=== PATIENT | female | born 1990 | race Hispanic/Latino ===

== ENCOUNTER 2021-06-07 08:10 | Outpatient (CLI) ==
[2021-06-07 21:05] LABS: SARS-CoV-2 PCR by NAA Not Detected (NotDetected)
== END 2021-06-07 08:11 | disposition home or self-care (01) ==
LOC: CSHLAB 08:10
PROVIDERS: ATTEND Obstetrics & Gynecology
DX: Z20.822 Contact with and (suspected) exposure to COVID-19 (principal)
CPT/HCPCS: U0003; U0005

== ENCOUNTER 2021-06-09 16:13 | Outpatient (CLI) | payer MEDICAID ==
[2021-06-09 17:21] LABS: Hemoglobin 11.2 g/dL (12.0-15.5); Mean Corpuscular HGB CONC 33.8 g/dL (32.0-36.0); Mean Corpuscular Volume 82.8 fl (81.6-98.3); Mean Platelet Volume 10.5 fl (7.4-10.4); Platelet Count 363 10x3/uL (150-450); RBC Distribution Width 13.4 % (11.5-14.5); White Blood Cell (WBC) Count 5.2 10x3/uL (3.5-10.5)
[2021-06-09 17:56] LABS: Hep B Surf Ag Non-Reactive S/CO (NonReactive)
[2021-06-09 18:07] LABS: HBSAg Index 0.22 S/CO (0-0.99)
[2021-06-10 13:25] LABS: Syphilis Antibody Nonreactive (Nonreactive); Syphilis Antibody Index 0.05 S/CO (<1.00 Non-Reactive)
== END 2021-06-09 16:14 | disposition home or self-care (01) ==
LOC: CSHLAB 16:13
PROVIDERS: ATTEND Obstetrics & Gynecology
DX: Z01.812 Encounter for preprocedural laboratory examination (principal)
CPT/HCPCS: 85027; 86780; 86900; 86901; 87340

== ENCOUNTER 2021-06-11 10:03 | Inpatient (IN) | payer MEDICAID, SELFPAY ==
[2021-06-11 11:18] VITALS: BMI 31.9
[2021-06-11] MEDS ORDERED: Famotidine/PF 20 mg/2ml Vial SLOW IVP PRN (11:20)
[2021-06-11] MEDS ORDERED: Bicitra 30 ML UDCUP PO PRN (11:20)
[2021-06-11] MEDS ORDERED: hydrALAZINE 20 MG/ML VIAL SLOW IVP PRN ×2 (11:21→15:21)
[2021-06-11] MEDS ORDERED: Promethazine HCl 25 MG/ML VIAL IM PRN ×3 (11:21→15:21)
[2021-06-11] MEDS ORDERED: Acetaminophen 500 MG TAB PO PRN (11:21)
[2021-06-11] MEDS ORDERED: Ondansetron PF 4 MG/2 ML Vial IVP PRN ×3 (11:21→15:21)
[2021-06-11] MEDS ORDERED: ceFAZolin 2 GM/Dextrose 50 ML 2 GM in Premix Bag 1 BAG IVPB SCH (11:30)
[2021-06-11] MEDS ORDERED: Hydrocerin (Eucerin) Cream 120 gm Jar TOP PRN (11:57)
[2021-06-11] MEDS ORDERED: Promethazine HCl 25 MG SUPP PR PRN (11:57)
[2021-06-11] MEDS ORDERED: diphenhydrAMINE 50 MG/ML VIAL IVP PRN (11:57)
[2021-06-11] MEDS ORDERED: Naloxone HCl 0.4 mg/ml Vial IV PRN (11:57)
[2021-06-11] MEDS ORDERED: Fentanyl 100 MCG/2 ML VIAL SLOW IVP PRN (11:57)
[2021-06-11] MEDS ORDERED: Meperidine HCl/PF 25 MG/ML VIAL SLOW IVP PRN (11:57)
[2021-06-11] MEDS ORDERED: Naloxone HCl 0.4 mg/ml Vial IVP PRN ×2 (11:57)
[2021-06-11] MEDS ORDERED: L&D-Morphine 4 MG/ML VIAL SLOW IVP PRN (11:57)
[2021-06-11] MEDS ORDERED: Ondansetron HCl/PF 4 MG/2 ML Vial IVP PRN (11:57)
[2021-06-11] MEDS ORDERED: Communication Order-Pharmacy FS SCH (12:00)
[2021-06-11] MEDS ORDERED: Ketorolac Tromethamine 30 MG/ML VIAL IVP SCH (12:00)
[2021-06-11] MEDS ORDERED: Morphine PF 10 MG/10 ML VIAL ONE (12:08)
[2021-06-11] MEDS ORDERED: Ondansetron PF 4 MG/2 ML Vial ONE (12:08)
[2021-06-11] MEDS ORDERED: Dexamethasone 4 mg/ml Vial ONE (12:08)
[2021-06-11] MEDS ORDERED: Phenylephrine 40 MG/NS 250 ML 250 ML ONE (12:09)
[2021-06-11 13:07] LABS: pH (Cord, venous) 7.321 (7.250-7.350)
[2021-06-11] MEDS ORDERED: Misoprostol 200 MCG TAB PR PRN (15:21)
[2021-06-11] MEDS ORDERED: Methylergonovine 0.2 MG/ML VIAL IM PRN (15:21)
[2021-06-11] MEDS ORDERED: Boostrix 0.5 ML (Tdap) VIAL IM ONE (15:21)
[2021-06-11] MEDS ORDERED: diphenhydrAMINE 25 MG CAP PO PRN (15:21)
[2021-06-11] MEDS ORDERED: NS w/ Oxytocin 30 units 500 ML IV SCH (15:21)
[2021-06-11] MEDS: Ketorolac Tromethamine 30 MG/ML VIAL IVP PRN (19:52)
[2021-06-12] MEDS ORDERED: HYDROcodone/Acetaminophen 5/325 mg Tablet PO PRN (00:01)
[2021-06-12] MEDS: Simethicone Chewable 80 MG TAB PO PRN ×3 (00:03→21:00)
[2021-06-12 04:40] LABS: Glucose 105 mg/dL (70-105)
[2021-06-12 05:06] LABS: Hemoglobin 9.4 g/dL (12.0-15.5); Mean Corpuscular HGB CONC 32.6 g/dL (32.0-36.0); Mean Corpuscular Volume 85.7 fl (81.6-98.3); Mean Platelet Volume 10.6 fl (7.4-10.4); Platelet Count 288 10x3/uL (150-450); RBC Distribution Width 13.5 % (11.5-14.5); Red Blood Cell (RBC) Count 3.36 10x6/uL (3.90-5.03); White Blood Cell (WBC) Count 11.3 10x3/uL (3.5-10.5)
[2021-06-12] MEDS: Lactated Ringer's 1,000 ML IV SCH ×3 (05:45→15:53)
[2021-06-12] MEDS: Docusate 100 MG CAP PO SCH ×3 (05:46→20:51)
[2021-06-12] MEDS: Ferrous Sulfate 325 MG TAB PO SCH ×3 (05:47→20:51)
[2021-06-12] MEDS: Ketorolac Tromethamine 30 MG/ML VIAL IVP PRN (07:39)
[2021-06-12] MEDS: Prenatal Vitamin 1 TAB PO SCH (07:44)
[2021-06-12] MEDS: HYDROcodone/Acetaminophen 5/325 mg Tablet PO PRN ×3 (07:44→20:51)
[2021-06-12] MEDS: Ibuprofen 800 MG TAB PO SCH ×2 (13:57→22:27)
[2021-06-13] MEDS ORDERED: Acetaminophen 325 MG TAB PO PRN (00:20)
[2021-06-13] MEDS: Ibuprofen 800 MG TAB PO SCH (05:32)
[2021-06-13] MEDS: Simethicone Chewable 80 MG TAB PO PRN (05:35)
[2021-06-13 08:11] VITALS: BP 94/50; TEMP 97.9
[2021-06-13] MEDS: Docusate 100 MG CAP PO SCH (08:29)
[2021-06-13] MEDS: Prenatal Vitamin 1 TAB PO SCH (08:29)
[2021-06-13] MEDS: Ferrous Sulfate 325 MG TAB PO SCH (08:30)
== END 2021-06-13 13:40 | disposition home or self-care (01) | DRG 788 ==
LOC: CSHLD 10:03 → CSHPED 15:55
PROVIDERS: ADMIT Obstetrics & Gynecology; ATTEND Obstetrics & Gynecology
PROC: 10D00Z1 Extraction of Products of Conception, Low, Open Approach (ICD-10-PCS; principal; 2021-06-11)
DX: O34.211 Maternal care for low transverse scar from previous cesarean delivery (principal); O99.824 Streptococcus B carrier state complicating childbirth; O24.420 Gestational diabetes mellitus in childbirth, diet controlled; O34.13 Maternal care for benign tumor of corpus uteri, third trimester; D25.9 Leiomyoma of uterus, unspecified; O43.893 Other placental disorders, third trimester; O99.892 Other specified diseases and conditions complicating childbirth; N73.6 Female pelvic peritoneal adhesions (postinfective); Z3A.39 39 weeks gestation of pregnancy; Z37.0 Single live birth
CPT/HCPCS: 36415; 51702; 82805; 82947; 85027; 86850; 86900; 86901; J0690; J1100; J1885; J2274; J2405